=== PATIENT | male | born 1985 | race Caucasian/White ===

== ENCOUNTER 2018-03-07 07:11 | Emergency (ER) | payer OTHER, SELFPAY | END 2018-03-07 08:28 | disposition home or self-care (01) | PROVIDERS: Emergency Provider Emergency Medicine; Family Provider Family Medicine; PCP Family Medicine; Visit Provider Emergency Medicine | DX: K13.0 Diseases of lips (principal) | CPT/HCPCS: 99282 ==

== ENCOUNTER 2019-04-27 08:23 | Emergency (ER) | payer OTHER, SELFPAY ==
--- NOTE | 2019-04-27 08:29 | ED_ITS ---
HPI - Male Genitourinary General Chief complaint: Urogenital-Male Stated complaint: ABD PAIN Time Seen by Provider: 04/27/19 08:29 Source: patient Mode of arrival: ambulatory Limitations: no limitations History of Present Illness HPI Narrative: 33-year-old male here for evaluation of lower back pain that started yesterday at approximately noon. He states that as the day went on he moved to his abdomen and then this morning started radiating down to his left testicle. No urinary symptoms. No prior history kidney stones. No problems urinating. No constipation or diarrhea. No prior abdominal surgeries. States that his back is feeling much better but is not completely resolved. Related Data Previous Rx's Medication Instructions Recorded hydrocortisone acetate [Anusol-HC] 25 mg R QDAY #30 supp 02/03/17 imiquimod [Aldara] 1 wallace TOPICAL SEE INSTRUCTIONS #1 07/31/17 pac sulfamethoxazole-trimethoprim 1 tab PO BID #14 tab 03/07/18 varenicline 1 mg tablet 1 mg PO BID #60 tab 12/13/18 ciprofloxacin HCl 500 mg PO BID 10 Days #20 tab 04/27/19 metronidazole [Flagyl] 500 mg PO TID 10 Days #30 tab 04/27/19 Allergies Allergy/AdvReac Type Severity Reaction Status Date / Time No Known Drug Allergies Allergy Verified 04/27/19 08:32 Review of Systems Constitutional Denies fever(s) ENT Ears, Nose, Mouth, and Throat: Denies vertigo Cardiovascular Denies chest pain Respiratory Denies cough Gastrointestinal Gastrointestinal: Reports abdominal pain, Denies nausea and Denies vomiting Genitourinary Comments: Radiating to the left testicle Musculoskeletal Reports back pain Integumentary/Breasts Denies rash Neurologic Denies confusion and Denies vertigo Psychiatric Denies confusion Hematologic/Lymphatic Denies easy bleeding and Denies easy bruising [facility] Medical History Condyloma acuminatum of penis (Resolved) Surgical History (Updated 08/02/18 @ 09:30 by Delores Guzmán) History of third molar tooth extraction (Resolved) Social History Smoking Status: Former smoker Social History Smoking Status: Former smoker Exam Initial Vital Signs Initial Vital Signs: Vital Signs Temperature 98.4 F 04/27/19 08:30 Pulse Rate 100 H 04/27/19 08:30 Respiratory Rate 20 04/27/19 08:30 Blood Pressure 118/80 04/27/19 08:30 Pulse Oximetry 99 04/27/19 08:30 Const General: cooperative and comfortable Orientation: alert and awake HENMT Head: normal to inspection and normocephalic Cardio Rate: regular rate GI Inspection: non-distended Palpation: soft, No firm and No tender External: circumcised Penis: normal penis Scrotum: scrotum normal Testes: normal and testicular lie normal Skin Lesions: no lesions Rashes: no rashes Neuro General: alert and awake Cognition: normal cognition Speech: speech normal Gait: normal gait Extrem General: normal to inspection and capillary refill normal Psych Appearance: grossly normal and well kempt Course Orders Ordered: ED Orders 04/27/19 08:35 CT kidney ureter bladder (KUB) Stat 04/27/19 08:43 Complete Blood Count AUTO DIFF Stat Comprehensive Metabolic Panel Stat Lipase Stat Vital Signs - 8 hr 04/27/19 08:30 Temperature 98.4 F Pulse Rate 100 H Respiratory Rate 20 Blood Pressure 118/80 Pulse Oximetry 99 MDM - Male Genitourinary Lab Data Attestation: I reviewed the patient's lab results. Result diagrams: 04/27/19 08:43 04/27/19 08:43 Lab Results 04/27/19 04/27/19 Range/Units 08:43 08:43 WBC 10.4 (4.5-11.0) X10^3/uL RBC 5.00 (4.5-5.9) X10^6/uL Hgb 15.1 (13.5-17.5) g/dL Hct 43.2 (41-53) % MCV 86.4 (80-100) fL MCH 30.2 (26-34) PG MCHC 34.9 (30-36) % RDW 12.8 (11.6-14.8) % Plt Count 158 (150-400) X10^3/uL Neut % (Auto) 79.1 H (50-75) % Lymph % (Auto) 13.5 L (25-40) % Leslie % (Auto) 6.6 (3-14) % Eos % (Auto) 0.4 L (2-4) % Baso % (Auto) 0.4 (0-2) % Neut # (Auto) 8200 H (6627-1884) /uL Lymph # (Auto) 1400 (2896-9785) /uL Leslie # (Auto) 700 (0-900) /uL Eos # (Auto) 0 (0-450) /uL Baso # (Auto) 0 (0-100) /uL Sodium 140 (137-145) mmol/L Potassium 3.7 (3.4-5.1) mmol/L Chloride 104 (98-107) mmol/L Carbon Dioxide 28 (22-32) mmol/L BUN 15 (9-20) mg/dL Creatinine 1.10 (0.66-1.25) mg/dL Estimated GFR > 60.0 (>60) mL/min BUN/Creatinine Ratio 13.6 (6-22) Glucose 105 H (70-100) mg/dL Calcium 9.3 (8.4-10.2) mg/dL Total Bilirubin 0.8 (0.2-1.3) mg/dL AST 26 (17-59) IU/L ALT 31 (21-72) IU/L Alkaline Phosphatase 54 (38-126) U/L Total Protein 7.7 (6.3-8.2) g/dL Albumin 4.5 (3.5-5.0) g/dL Globulin 3.2 (1.7-4.1) g/dL Albumin/Globulin Ratio 1.4 (1.0-2.8) Lipase 56 (23-300) U/L Imaging Data CT scan - abdomen: Radiologist's impression: [place] [address] CT Scan Report Signed Patient: Luis Felipe Hidalgo VMR#: [id number] : 1985Acct:[id number] Age/Sex: te of Service: 04/27/19 Loc: ED Accession Number: [id number] Procedure: CT kidney ureter bladder (KUB) Ordering Provider: Tor Davis D.O. PROCEDURE: CT KIDNEY URETER BLADDER (KUB) INDICATIONS: Left side pain concern for stone TECHNIQUE: Noncontrast 5 mm thick sections acquired from the diaphragms to the symphysis. 5 mm thick coronal and sagittal reformats were then performed. For radiation dose reduction, the following was used: automated exposure control, adjustment of mA and/or kV according to patient size. COMPARISON: None. FINDINGS: Image quality: Excellent. Lung bases: Lung bases are clear. Heart size is normal. Urinary system: Both kidneys are normal in size. No kidney stones. No hydronephrosis or perinephric fat stranding. Both ureters appear non-dilated throughout their expected courses. Bladder wall thickness is normal; no calcified bladder stones. Other solid organs: Liver is normal in size. Gallbladder is normal. Pancreas is normal in contours. Spleen is normal in size. No adrenal nodules. Peritoneum and bowel: There is short segmental thickening of the sigmoid colon adjacent to a diverticulum. There is fat stranding in the left lower quadrant adjacent to the segment of thickened sigmoid colon. The findings are consistent with acute diverticulitis. There is a trace amount of free fluid. No free air. No fluid collections to suggest diverticular abscess. Nodes and vessels: No retroperitoneal or mesenteric adenopathy by size criteria. Aorta and inferior vena cava are normal in caliber. Abdominal wall: No ventral hernias. Pelvis: No free pelvic fluid. No inguinal hernias or adenopathy. Bones: No suspicious bony lesions. No vertebral body compression fractures. IMPRESSION: Acute diverticulitis. No evidence for diverticular perforation or a bscess. Dictated by: Nadira Montero M.D. on 04/27/2019 at 9:07 Approved by: Nadira Montero M.D. on 04/27/2019 at 9:12 [facility] Narrative Medical decision making narrative: Patient with benign abdominal exam. CT scan shows diverticulitis without any complications. Patient is tolerating oral intake. Will have him start on antibiotics. Informed him he needed to contact his primary care provider. He was given return precautions. He expressed understanding and agreement with plan. Discharge Plan Departure Patient Disposition: Home Clinical Impression: Diverticulitis Instructions: DI for Diverticulitis Activity Restrictions/Additional Instructions: I do recommend you contact Dr. Cruz's office to establish care and also for a follow-up. Take the medications as directed. Return to the emergency department for any new or worsening symptoms Prescriptions: New ciprofloxacin HCl 500 mg tablet 500 mg PO BID 10 Days Qty: 20 RF: 0 metronidazole [Flagyl] 500 mg tablet 500 mg PO TID 10 Days Qty: 30 RF: 0 No Action hydrocortisone acetate [Anusol-HC] 25 MG suppository 25 mg R QDAY Qty: 30 RF: 3 imiquimod [Aldara] 5 % cream in packet 1 wallace Topical SEE INSTRUCTIONS Qty: 1 RF: 3 sulfamethoxazole-trimethoprim 800 MG/160 MG tablet 1 tab PO BID Qty: 14 RF: 0 varenicline [Chantix] 1 mg tablet 1 mg PO BID Qty: 60 RF: 2 Referrals: Shaun Cruz MD [Primary Care Provider] -
[2019-04-27 08:30] VITALS: BP 118/80; PULSE 100; RESP 20; TEMP 36.9; O2SAT 99
--- NOTE | 2019-04-27 08:35 | DI.CT.S_ITS ---
PROCEDURE: CT KIDNEY URETER BLADDER (KUB) INDICATIONS: Left side pain concern for stone TECHNIQUE: Noncontrast 5 mm thick sections acquired from the diaphragms to the symphysis. 5 mm thick coronal and sagittal reformats were then performed. For radiation dose reduction, the following was used: automated exposure control, adjustment of mA and/or kV according to patient size. COMPARISON: None. FINDINGS: Image quality: Excellent. Lung bases: Lung bases are clear. Heart size is normal. Urinary system: Both kidneys are normal in size. No kidney stones. No hydronephrosis or perinephric fat stranding. Both ureters appear non-dilated throughout their expected courses. Bladder wall thickness is normal; no calcified bladder stones. Other solid organs: Liver is normal in size. Gallbladder is normal. Pancreas is normal in contours. Spleen is normal in size. No adrenal nodules. Peritoneum and bowel: There is short segmental thickening of the sigmoid colon adjacent to a diverticulum. There is fat stranding in the left lower quadrant adjacent to the segment of thickened sigmoid colon. The findings are consistent with acute diverticulitis. There is a trace amount of free fluid. No free air. No fluid collections to suggest diverticular abscess. Nodes and vessels: No retroperitoneal or mesenteric adenopathy by size criteria. Aorta and inferior vena cava are normal in caliber. Abdominal wall: No ventral hernias. Pelvis: No free pelvic fluid. No inguinal hernias or adenopathy. Bones: No suspicious bony lesions. No vertebral body compression fractures. IMPRESSION: Acute diverticulitis. No evidence for diverticular perforation or abscess. Dictated by: Nadira Montero M.D. on 04/27/2019 at 9:07 Approved by: Nadira Montero M.D. on 04/27/2019 at 9:12
[2019-04-27 09:02] LABS: Add Manual Diff / Slide Review NO; Basophils Absolute Auto 0 /uL (0-100); Basophils Percent Auto 0.4 % (0-2); Eosinophils Absolute Auto 0 /uL (0-450); Eosinophils Percent Auto 0.4 % (2-4); Hematocrit 43.2 % (41-53); Hemoglobin 15.1 g/dL (13.5-17.5); Lymphocytes Absolute Auto 1400 /uL (1100-4500); Lymphocytes Percent Auto 13.5 % (25-40); Mean Corpuscular HGB Conc 34.9 % (30-36); Mean Corpuscular Hemoglobin 30.2 PG (26-34); Mean Corpuscular Volume 86.4 fL (80-100); Monocytes Absolute Auto 700 /uL (0-900); Monocytes Percent Auto 6.6 % (3-14); Neutrophils Absolute Auto 8200 /uL (1500-7000); Neutrophils Percent Auto 79.1 % (50-75); Platelet Count 158 X10^3/uL (150-400); Red Cell Distribution Width 12.8 % (11.6-14.8); White Blood Cell Count 10.4 X10^3/uL (4.5-11.0)
[2019-04-27 09:10] LABS: Alanine Aminotransferase 31 IU/L (21-72); Albumin 4.5 g/dL (3.5-5.0); Albumin Globulin Ratio 1.4 (1.0-2.8); Alkaline Phosphatase 54 U/L (38-126); Aspartate Aminotransferase 26 IU/L (17-59); BUN Creatinine Ratio 13.6 (6-22); Bilirubin Total 0.8 mg/dL (0.2-1.3); Blood Urea Nitrogen 15 mg/dL (9-20); Calcium 9.3 mg/dL (8.4-10.2); Carbon Dioxide 28 mmol/L (22-32); Chloride 104 mmol/L (98-107); Estimated Glomerular Filt Rate > 60.0 mL/min (>60); Globulin 3.2 g/dL (1.7-4.1); Glucose 105 mg/dL (70-100); HEMOLYSIS < 15 (0-50); Lipase 56 U/L (23-300); Potassium 3.7 mmol/L (3.4-5.1); Sodium 140 mmol/L (137-145); Total Protein 7.7 g/dL (6.3-8.2)
[2019-04-27 09:40] VITALS: BP 132/76; PULSE 95; RESP 18
== END 2019-04-27 09:42 | disposition home or self-care (01) ==
PROVIDERS: Emergency Provider Emergency Medicine; PCP Family Medicine
DX: K57.92 Diverticulitis of intestine, part unspecified, without perforation or abscess without bleeding (principal)
CPT/HCPCS: 36591; 74176; 80053; 83690; 85025; 99282; 99284

== ENCOUNTER → 2021-02-27 16:12 | Outpatient (CLI) | payer OTHER, SELFPAY ==
--- NOTE | 2021-02-27 16:16 | DI.RAD.S_ITS ---
PROCEDURE: XR ELBOW RT MIN 3V INDICATIONS: elbow pain decreased rang of motion TECHNIQUE: 3 views of the elbow were acquired. COMPARISON: None. FINDINGS: Bones: No fractures or dislocations. No suspicious bony lesions. Soft tissues: No elbow joint effusion. No suspicious soft tissue calcifications. IMPRESSION: No acute fracture. No osseous lesion. If symptoms and/or clinical suspicion for pathology persist, further assessment with repeat, or advanced imaging (e.g., CT, MRI, or bone scan) may be helpful for further assessment. Dictated by: Lillie Elizondo M.D. on 02/27/2021 at 16:42 Approved by: Lillie Elizondo M.D. on 02/27/2021 at 16:42
--- NOTE | 2021-02-27 16:16 | DI.RAD.S_ITS ---
PROCEDURE: XR LUMBAR SPINE 2-3V INDICATIONS: lbp TECHNIQUE: 3 views of the lumbar spine were acquired. COMPARISON: None. FINDINGS: Bones: 5 [id number] vertebrae are present. There is mild, grade 1 retrolisthesis of L2 on L3, L3 on L4, and L4 on L5. Multilevel disc space narrowing and endplate osteophyte formation, as well as facet hypertrophy throughout the mid and lower lumbar spine. No vertebral body compression fractures. No suspicious bony lesions. Soft tissues: Overlying bowel gas pattern is normal. No suspicious soft tissue calcifications. IMPRESSION: Multilevel degenerative disc and facet disease. Macro no fracture Dictated by: Lillie Elizondo M.D. on 02/27/2021 at 16:42 Approved by: Lillie Elizondo M.D. on 02/27/2021 at 16:43
== END ==
PROVIDERS: PCP Family Medicine; Referring Provider Family Medicine; Visit Provider Family Medicine
DX: M77.11 Lateral epicondylitis, right elbow (principal); M25.521 Pain in right elbow; M54.5 Low back pain; M51.36 Other intervertebral disc degeneration, lumbar region
CPT/HCPCS: 72100; 73080

== ENCOUNTER → 2025-04-05 15:54 | Outpatient (CLI) | payer OTHER, SELFPAY ==
--- NOTE | 2025-04-05 15:56 | DI.RAD.S_ITS ---
PROCEDURE: XR SHOULDER LT MIN 2V INDICATIONS: anterior shoulder pain TECHNIQUE: 3 views of the shoulder were acquired. COMPARISON: None. FINDINGS: Bones: No fractures or dislocations. No suspicious bony lesions. Visualized ribs appear intact. Soft tissues: No suspicious soft tissue calcifications. IMPRESSION: No acute bony abnormality. Dictated by: Prince Jhaveri M.D. on 04/06/2025 at 9:39 Approved by: Prince Jhaveri M.D. on 04/06/2025 at 9:39
== END ==
PROVIDERS: PCP Family Medicine; Referring Provider Physician Assistant; Visit Provider Physician Assistant
DX: M25.512 Pain in left shoulder (principal)
CPT/HCPCS: 73030